=== PATIENT | male | born 1995 | race Caucasian/White ===

== ENCOUNTER 2017-07-02 00:23 | Emergency (ER) | payer BC ==
[~2017-07-02] VITALS: Ht 187.9 cm; Wt 67.1 kg
[~2017-07-02 00:23] MED LIST: BACTRIM DS 8001 TA1 PO; BACTROBAN CREAM15 GM PO; CLARITIN10 MG PO; KEFLEX500 M1 PO; LOMOTIL 0.025 M1 TA1 PO; Motrin,Rufen800 MG PO; NKHM; PREDNISONE10 MG PO; ZITHROMAX Z PA250 MG PO; ZOFRAN ODT4 MG SL
[2017-07-02 01:12] LABS: BILIRUBIN NEGATIVE (NEGATIVE); BLOOD NEGATIVE (NEGATIVE); CLARITY CLEAR (CLEAR); COLOR YELLOW (YELLOW); GLUCOSE NEGATIVE (NEGATIVE); KETONE NEGATIVE (NEGATIVE); LEUKO ESTERASE NEGATIVE (NEGATIVE); NITRITE NEGATIVE (NEGATIVE); PROTEIN NEGATIVE (NEGATIVE); UROBILINOGEN 0.2 E.U./dl (0.2-1.0)
[2017-07-02 01:18] LABS: WBC 0-2 wbc/hpf (0-5)
[2017-07-02] MEDS ORDERED: KETOROLAC10 MG PO (02:43)
[2017-07-02] MEDS ORDERED: Orphenadrine C100 MG PO (02:43)
== END 2017-07-02 03:03 | disposition home or self-care (01) ==
LOC: ED 00:23
PROVIDERS: Emergency Medicine Emergency Medical Services
DX: S30.0XXA Contusion of lower back and pelvis, initial encounter (principal); F17.200 Nicotine dependence, unspecified, uncomplicated; X50.9XXA Other and unspecified overexertion or strenuous movements or postures, initial encounter; Y93.89 Activity, other specified; Y92.9 Unspecified place or not applicable; Y99.9 Unspecified external cause status

== ENCOUNTER 2022-08-07 19:11 | Emergency (ER) | payer BC ==
[~2022-08-07] VITALS: Ht 185.4 cm; Wt 78.5 kg
[~2022-08-07 19:11] MED LIST changes: +KETOROLAC10 MG PO; +Orphenadrine C100 MG PO
[2022-08-07] MEDS ORDERED: CYCLOBENZAPRINE5 M3 PO (21:53)
[2022-08-07] MEDS ORDERED: NAPROSYN500 MG PO (21:53)
== END 2022-08-07 22:00 | disposition home or self-care (01) ==
LOC: ED 19:11
DX: S29.012A Strain of muscle and tendon of back wall of thorax, initial encounter (principal); X58.XXXA Exposure to other specified factors, initial encounter; Y93.89 Activity, other specified; Y92.89 Other specified places as the place of occurrence of the external cause; Y99.8 Other external cause status

== ENCOUNTER → 2023-12-14 | Outpatient (CLI) | payer BC ==
[~2023-12-14] MED LIST changes: +BUSPIRONE HCL15 MG PO; +CYCLOBENZAPRINE5 M3 PO; +LAMOTRIGINE100 MG PO; +NAPROSYN500 MG PO; +PREDNISONE10 M1 PO; +RISPERIDONE0.5 MG PO
[2023-12-14 15:50] LABS: BASO % 0.5 % (0.0-1.0); EOS # 0.1 10*3/uL (0.0-0.4); EOS % 0.9 % (1.0-4.0); HEMATOCRIT 45.4 % (42.0-52.0); LYMPH # 1.2 10*3/uL (1.3-4.4); LYMPH % 18.3 % (27.0-41.0); MEAN CELL VOLUME 92.7 fl (80.0-94.0); MEAN CORPUSCULAR HGB CONC 33.5 g/dl (33.0-37.0); MEAN PLATELET VOLUME 10.9 fl (9.6-12.3); MONO # 0.6 10*3/uL (0.1-1.0); MONO % 8.7 % (3.0-9.0); NEUT # 4.8 10*3/uL (2.3-7.9); NEUT % 71.3 % (47.0-73.0); PLATELET COUNT AUTOMATED 204 10*3/uL (130-400); RED CELL DISTRI WIDTH 11.8 % (0-14.5); WHITE BLOOD COUNT 6.7 10*3/uL (4.8-10.8)
[2023-12-14 16:24] LABS: ALKALINE PHOSPHATASE 91 U/L (46-116); BUN 9 mg/dl (9-23); CHLORIDE 104 mmol/L (98-107); POTASSIUM 3.8 mmol/L (3.4-5.1); SGPT/ALT 30 U/L (5-49); TOTAL PROTEIN 7.7 gm/dL (6.0-8.0)
== END | disposition home or self-care (01) ==
LOC: LAB 15:28
PROVIDERS: ATTEND Physician Assistant
DX: Z51.81 Encounter for therapeutic drug level monitoring (principal)

== ENCOUNTER 2024-03-13 03:01 | Emergency (ER) | payer SELFPAY ==
[~2024-03-13] VITALS: Ht 180.3 cm; Wt 86.2 kg
[2024-03-13 03:22] LABS: BASO % 0.6 % (0.0-1.0); EOS # 0.4 10*3/uL (0.0-0.4); EOS % 5.7 % (1.0-4.0); HEMATOCRIT 43.3 % (42.0-52.0); LYMPH # 2.1 10*3/uL (1.3-4.4); LYMPH % 32.1 % (27.0-41.0); MEAN CELL VOLUME 90.8 fl (80.0-94.0); MEAN CORPUSCULAR HGB 30.4 pg (27.0-31.0); MEAN CORPUSCULAR HGB CONC 33.5 g/dl (33.0-37.0); MEAN PLATELET VOLUME 10.5 fl (9.6-12.3); MONO # 0.6 10*3/uL (0.1-1.0); MONO % 9.6 % (3.0-9.0); NEUT # 3.4 10*3/uL (2.3-7.9); NEUT % 51.7 % (47.0-73.0); PLATELET COUNT AUTOMATED 219 10*3/uL (130-400); RED BLOOD COUNT 4.77 10*6/uL (4.50-5.90); RED CELL DISTRI WIDTH 11.7 % (0-14.5); WHITE BLOOD COUNT 6.7 10*3/uL (4.8-10.8)
[2024-03-13 03:32] LABS: BILIRUBIN Negative (Negative); BLOOD Negative (Negative); CLARITY Clear (Clear); COLOR Dark Yellow (Yellow); GLUCOSE Negative (Negative); KETONE Trace (Negative); LEUKO ESTERASE 1+ (Negative); NITRITE Negative (Negative); PH 5.5 (4.5-8.0); SPECIFIC GRAVITY >= 1.030 (1.001-1.030)
[2024-03-13 03:39] LABS: URINE AMPHETAMINES Negative (1000ng/ml); URINE BARBITURATES Negative (200ng/ml); URINE BENZODIAZEPINES Negative (200ng/ml); URINE CANNABINOIDS (THC) Negative (50ng/ml); URINE COCAINE Negative (300ng/ml); URINE METHADONE Negative (300ng/ml); URINE OPIATES Negative (300ng/ml); URINE PHENCYCLIDINE Negative (25ng/ml)
[2024-03-13 03:44] LABS: ALKALINE PHOSPHATASE 98 U/L (46-116); BUN 11 mg/dl (9-23); CHLORIDE 106 mmol/L (98-107); POTASSIUM 3.8 mmol/L (3.4-5.1); SGPT/ALT 20 U/L (5-49); TOTAL PROTEIN 7.3 gm/dL (6.0-8.0)
[2024-03-13 03:52] LABS: WBC 16-20 wbc/hpf (0-5)
[2024-03-13 03:53] LABS: ETHYL ALCOHOL < 3.0 mg/dl (<3)
[2024-03-13] MEDS ORDERED: LAMICTAL100 MG PO (09:45)
[2024-03-13] MEDS ORDERED: AUVELITY ER 451 EACH PO (09:45)
[2024-03-13] MEDS ORDERED: RISPERDAL1 M1 PO (09:46)
[2024-03-13] MEDS ORDERED: DOXEPIN25 MG PO (09:47)
== END 2024-03-13 12:32 | disposition home or self-care (01) ==
LOC: ED 03:01
PROVIDERS: Emergency Medicine
DX: F43.21 Adjustment disorder with depressed mood (principal); F31.9 Bipolar disorder, unspecified